=== PATIENT | female | born 1990 ===

== ENCOUNTER → 2021-07-10 | Outpatient (CLI) | payer OTHER | END | disposition home or self-care (01) | LOC: RAD 08:41 | DX: R13.19 Other dysphagia (principal) ==

== ENCOUNTER 2022-01-02 09:39 | Outpatient (CLI) | payer OTHER | END 2022-01-02 09:41 | disposition home or self-care (01) | LOC: SONOGRAMA 09:39 | PROVIDERS: ATTEND Pathology Anatomic Pathology & Clinical Pathology | DX: E04.1 Nontoxic single thyroid nodule (principal) ==